=== PATIENT | male | born 1970 | race Caucasian/White ===

== ENCOUNTER 2021-12-28 14:35 | Emergency (ER) | payer MEDICAID ==
[2021-12-28] MEDS ORDERED: Aspirin 81 MG Tab.Chew PO ONE (14:54)
[2021-12-28] MEDS ORDERED: Nitroglycerin 0.4 MG Tab.SL SL ONE (14:58)
[2021-12-28] MEDS ORDERED: Acetaminophen 500 MG Tab PO ONE (15:28)
[2021-12-28] MEDS ORDERED: Acetaminophen 1,000 MG in Premix Bag 1 BAG IV ONE (15:28)
[2021-12-28 15:29] LABS: TROPONIN I HIGH SENSITIVITY 9.7 pg/mL (<=60.3)
== END 2021-12-28 16:11 | disposition home or self-care (01) ==
LOC: JP.ED 14:35
DX: I25.10 Atherosclerotic heart disease of native coronary artery without angina pectoris (principal); J44.9 Chronic obstructive pulmonary disease, unspecified; Z79.899 Other long term (current) drug therapy
CPT/HCPCS: 36415; 80053; 84484; 85025; 93005; 93010; 99283; 99285; A9270